=== PATIENT | female | born 1990 | race Caucasian/White ===

== ENCOUNTER 2020-01-03 03:59 | Emergency (ER) | payer OTHER ==
[~2020-01-03] VITALS: Ht 165.1 cm; Wt 77.1 kg
[2020-01-03 04:51] LABS: BILIRUBIN Negative (Negative); BLOOD 2+ (Negative); CLARITY Cloudy (Clear); COLOR Yellow (Yellow); GLUCOSE Negative (Negative); KETONE 1+ (Negative); LEUKO ESTERASE 2+ (Negative); NITRITE Negative (Negative); PH 5.5 (4.5-8.0)
[2020-01-03 05:01] LABS: BACTERIA 2+; RBC 16-20 rbc/hpf (0-2); WBC 31-40 wbc/hpf (0-5)
[2020-01-03 05:02] LABS: MUCOUS 1+
[2020-01-03] MEDS ORDERED: CIPRO500 MG PO (05:07)
== END 2020-01-03 05:20 | disposition home or self-care (01) ==
LOC: ED 03:59
PROVIDERS: Internal Medicine
DX: N39.0 Urinary tract infection, site not specified (principal); Z88.0 Allergy status to penicillin

== ENCOUNTER 2020-04-17 16:59 | Emergency (ER) | payer OTHER ==
[~2020-04-17] VITALS: Wt 69.4 kg
[~2020-04-17 16:59] MED LIST: CIPRO500 MG PO
[2020-04-17] MEDS ORDERED: IBUPROFEN600 MG PO (18:28)
== END 2020-04-17 18:50 | disposition home or self-care (01) ==
LOC: ED 16:59
DX: G56.32 Lesion of radial nerve, left upper limb (principal); Z88.0 Allergy status to penicillin; Z79.2 Long term (current) use of antibiotics; Z86.718 Personal history of other venous thrombosis and embolism

== ENCOUNTER 2020-11-05 23:54 | Emergency (ER) | payer OTHER ==
[~2020-11-05] VITALS: Ht 165.1 cm; Wt 61.2 kg
[~2020-11-05 23:54] MED LIST changes: +IBUPROFEN600 MG PO
[2020-11-06 01:31] LABS: BILIRUBIN Negative (Negative); BLOOD Trace-Lysed (Negative); CLARITY Cloudy (Clear); COLOR Yellow (Yellow); GLUCOSE Negative (Negative); KETONE Trace (Negative); LEUKO ESTERASE Trace (Negative); NITRITE Positive (Negative); PH 5.5 (4.5-8.0); SPECIFIC GRAVITY 1.015 (1.001-1.030); UROBILINOGEN 0.2 E.U./dl (0.0-1.0)
[2020-11-06 01:54] LABS: BACTERIA 4+
[2020-11-06] MEDS ORDERED: PYRIDIUM200 M1 PO (03:20)
[2020-11-06] MEDS ORDERED: CEPHALEXIN500 M1 PO (03:20)
== END 2020-11-06 03:27 | disposition home or self-care (01) ==
LOC: ED 23:54
PROVIDERS: Emergency Medicine
DX: N39.0 Urinary tract infection, site not specified (principal); Z88.0 Allergy status to penicillin; Z79.899 Other long term (current) drug therapy; Z79.2 Long term (current) use of antibiotics